=== PATIENT | female | born 1980 | race Caucasian/White ===

== ENCOUNTER 2021-02-05 04:33 | Inpatient (IN) ==
[2021-02-05] MEDS ORDERED: *HR* HYDROmorphone (PF) 1 MG/ML SYRINGE IVP ONE ×3 (04:59→08:39)
[2021-02-05] MEDS ORDERED: Ondansetron 4 MG/2 ML VIAL IVP ONE (05:00)
[2021-02-05] MEDS ORDERED: 0.9 % Sodium Chloride 1,000 ML IVC ONE (05:00)
[2021-02-05 05:25] LABS: Basophils % 0.3 %; Eosinophils # 0.2 K/mcL (0.0-0.6); Eosinophils % 1.3 %; Immature Granulocytes % 0.4 % (0-4); Lymphocytes # 1.8 K/mcL (0.6-4.6); Lymphocytes % 15.9 %; Mean Corpuscular HGB Conc 33.3 g/dL (31.6-35.5); Mean Corpuscular Hemoglobin 29.1 pg (28.0-33.3); Mean Corpuscular Volume 87.4 fL (83.0-100.0); Mean Platelet Volume 8.7 fL (9.4-12.4); Monocytes # 1.1 K/mcL (0.0-1.3); Monocytes % 9.6 %; Neutrophils # 8.3 K/mcL (1.6-8.9); Platelet Count 365 K/mcL (140-400); Red Blood Count 4.12 M/mcL (3.82-4.97); Red Cell Distribution Width 13.1 % (11.5-14.5); Segmented Neutrophils % 72.5 %; White Blood Count 11.5 K/mcL (4.3-11.1)
[2021-02-05 05:47] LABS: BUN/Creatinine Ratio 12 (6-26); Blood Urea Nitrogen 9 mg/dL (6-20); Calcium 9.2 mg/dL (8.6-10.3); Carbon Dioxide 25 mEq/L (23-29); Chloride 104 mEq/L (98-107); Glucose 111 mg/dL (70-105); Osmolality,Calculated 281 (280-300); Potassium 3.4 mEq/L (3.5-5.1); Sodium 136 mEq/L (136-145); eGFR For African Americans > 60 (> 60); eGFR For Non-African Americans > 60 (> 60)
[2021-02-05] MEDS ORDERED: MOM Conc 10 ML UD.LIQ PO STA (11:46)
[2021-02-05] MEDS ORDERED: *HR* HYDROmorphone (PF) 1 MG/ML SYRINGE IVP PRN (12:00)
[2021-02-05] MEDS ORDERED: Simethicone 80 MG TAB.CHEW PO PRN (12:01)
[2021-02-05] MEDS: Ketorolac 15 MG/ML VIAL IVP SCH ×2 (13:26→19:41)
[2021-02-05] MEDS: predniSONE 20 MG TABLET PO SCH (13:26)
[2021-02-05] MEDS: Acetaminophen IV 1,000 MG/100 ML BAG IVPB SCH ×2 (13:30→19:40)
[2021-02-05] MEDS ORDERED: *HR* LORazepam 2 MG/ML VIAL IVP ONE (20:47)
[2021-02-06] MEDS: Acetaminophen IV 1,000 MG/100 ML BAG IVPB SCH ×3 (00:02→12:34)
[2021-02-06] MEDS: Ketorolac 15 MG/ML VIAL IVP SCH ×3 (01:50→14:20)
[2021-02-06] MEDS: predniSONE 20 MG TABLET PO SCH (08:03)
[2021-02-06] MEDS ORDERED: Benzocaine/Menthol 56 GM AEROSOL SPRAY TP PRN (17:30)
[2021-02-06] MEDS: *HR* OxyCODONE/APAP 7.5/325 TABLET PO PRN (18:01)
[2021-02-06] MEDS: polyethylene glycoL 3350 17 GM POWD.PACK PO SCH (18:39)
[2021-02-06] MEDS: Acetaminophen 325 MG TABLET PO SCH (19:30)
[2021-02-06] MEDS ORDERED: Estrogens, Conjugated CREAM 30 GM TUBE VG SCH (21:00)
[2021-02-07] MEDS: *HR* OxyCODONE/APAP 7.5/325 TABLET PO PRN ×2 (00:36→08:08)
[2021-02-07 00:37] LABS: Candida DNA Not Detected (Not Detect); Gardnerella DNA Not Detected (Not Detect); Trichomonas DNA Not Detected (Not Detect)
[2021-02-07] MEDS: Acetaminophen 325 MG TABLET PO SCH (04:57)
[2021-02-07 08:05] VITALS: BP 112/76
[2021-02-07] MEDS: polyethylene glycoL 3350 17 GM POWD.PACK PO SCH (08:08)
[2021-02-07] MEDS: predniSONE 20 MG TABLET PO SCH (08:08)
[2021-02-07] MEDS ORDERED: hydroCHLOROthiazide 25 MG TABLET PO SCH (09:00)
== END 2021-02-07 12:00 | disposition home or self-care (01) | DRG 948 ==
LOC: 1NENUOBS 04:33 → EMEROOARM 04:33 → 1NENUOBS 09:50
PROVIDERS: ADMIT Obstetrics & Gynecology; ATTEND Obstetrics & Gynecology